=== PATIENT | female | born 1995 | race Caucasian/White ===

== ENCOUNTER 2019-05-18 21:05 | Emergency (ER) | payer OTHER ==
[2019-05-18] MEDS ORDERED: Ondansetron 4 MG/2 ML SDV IVPUSH ONE (21:15)
[2019-05-18] MEDS ORDERED: Sodium Chloride 0.9% 1,000 ML IV ONE (21:15)
[2019-05-18 21:19] VITALS: BP 114/78; PULSE 80
[2019-05-18] MEDS ORDERED: diphenhydrAMINE 50 MG/ML SDV IVPUSH ONE (21:38)
[2019-05-18] MEDS ORDERED: Ketorolac 30 MG/ML SDV IVPUSH ONE (21:46)
[2019-05-18] MEDS ORDERED: Haloperidol Lactate 5 MG/ML SDV IV ONE (21:46)
--- NOTE | 2019-05-18 22:08 | EDM.PDOC ---
ED HPI GENERAL MEDICAL PROBLEM - General Chief Complaint: Abdominal Pain Stated Complaint: NAUSIA Time Seen by Provider: 05/18/19 21:10 Source of Information: Reports: Patient, Family History Limitations: Reports: No Limitations - History of Present Illness INITIAL COMMENTS - FREE TEXT/NARRATIVE: Patient presents to ER with complaints of intense nausea/vomiting and abdominal pain. Has been having frequent issues like this for the last 2 months. Has had multiple ER visits, [facility] visits for same complaint. She has had EGDs, CT scans, multiple lab tests. Recently saw an internal medicine doctor and had a breath test for h. pylori. Has not gotten the results yet from this. She states the vomiting started again 2 hours ago. Does not feel associated with eating as happens whether she eats or not but admits she "doesn't eat much as afraid to vomit". Had a soft to loose stool earlier today although that is not unusual for her. No fevers Per [facility] chart, has had multiple lab tests, EGD, CT scan, ultrasounds without any positive results. 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 She did not use today but admits to use yesterday. States that the internal medicine doctor she saw on doesn't necessarily agree with that diagnosis. Onset: Today, Sudden Duration: Hour(s):, Constant Location: Reports: Abdomen Quality: Reports: Sharp, Stabbing Severity: Severe Improves with: Reports: None Associated Symptoms: Reports: Loss of Appetite, Nausea/Vomiting. Denies: Chest Pain, Cough, Fever/Chills, Shortness of Breath Anterior Abdomen Pain Score (Numeric/FACES): 10 - Related Data Allergies Allergy/AdvReac Type Severity Reaction Status Date / Time azithromycin [From Zithromax] Allergy Rash Verified 05/18/19 21:17 Home Meds: Home Meds Norgestimate-Ethinyl Estradiol [Ortho Tri-Cyclen] 1 each PO DAILY 01/16/15 [ History] clonazePAM [Clonazepam] 1 tab PO BID PRN 01/16/15 [History] Past Medical History Gastrointestinal History: Reports: GERD Psychiatric History: Reports: Anxiety, Depression - Past Surgical History GI Surgical History: Reports: None Social & Family History - Tobacco Use Smoking Status *Q: Current Every Day Smoker - Recreational Drug Use Recreational Drug Type: Reports: Marijuana/Hashish ED ROS GENERAL - Review of Systems Review Of Systems: See Below Constitutional: Reports: Weakness, Fatigue, Decreased Appetite. Denies: Fever, Chills, Malaise HEENT: Reports: No Symptoms Respiratory: Denies: Shortness of Breath, Cough Cardiovascular: Denies: Chest Pain, Edema, Lightheadedness Endocrine: Denies: Fatigue GI/Abdominal: Reports: Abdominal Pain, Nausea, Vomiting. Denies: Constipation, Diarrhea : Reports: No Symptoms Musculoskeletal: Reports: No Symptoms Skin: Reports: No Symptoms Neurological: Reports: No Symptoms ED EXAM, GI/ABD - Physical Exam Exam: See Below Exam Limited By: No Limitations General Appearance: Alert, WD/WN, Moderate Distress Ears: Normal External Exam, Normal TMs Nose: Normal Inspection, Normal Mucosa, No Blood Throat/Mouth: Normal Inspection, Normal Oropharynx Head: Normocephalic Neck: Normal Inspection, Supple, Non-Tender Respiratory/Chest: No Respiratory Distress, Lungs Clear, Normal Breath Sounds Cardiovascular: Regular Rate, Rhythm GI/Abdominal Exam: Normal Bowel Sounds, Soft, Tender Extremities: Normal Inspection, No Pedal Edema Neurological: Alert, Oriented Skin Exam: Warm, Dry Course - Vital Signs Last Recorded V/S: Last Vital Signs Temp 97.9 F 05/18/19 21:17 Pulse 80 05/18/19 21:17 Resp 16 05/18/19 21:17 BP 114/78 05/18/19 21:17 Pulse Ox 98 05/18/19 21:17 - Orders/Labs/Meds Orders: Active Orders 24 hr Category Date Time Status Abdomen 2V AP Flat Upright [CR] Stat Exams 05/18/19 21:31 Ordered DRUG SCREEN, URINE [URCHEM] Stat Lab 05/18/19 21:36 Ordered UA W/MICROSCOPIC [URIN] Stat Lab 05/18/19 21:31 Ordered Labs: Laboratory Tests 05/18/19 05/18/19 Range/Units 21:53 21:53 WBC 12.4 H (4.0-10.0) x10^3/uL RBC 5.03 (4.00-5.50) x10^6/uL Hgb 14.7 (12.0-16.0) g/dL Hct 43.6 (33.0-47.0) % MCV 86.7 (78.0-93.0) fL MCH 29.2 (26.0-32.0) pg MCHC 33.7 (32.0-36.0) g/dL RDW Coeff of Farhat 12.5 (10.0-15.0) % Plt Count 301 (130-400) x10^3/uL Neut % (Auto) 57.6 (50.0-80.0) % Lymph % (Auto) 33.0 (25.0-50.0) % Knox % (Auto) 7.4 (2.0-11.0) % Eos % (Auto) 1.8 (0.0-4.0) % Baso % (Auto) 0.2 (0.2-1.2) % Sodium 140 (136-145) mmol/L Potassium 3.5 (3.5-5.1) mmol/L Chloride 103 (98-107) mmol/L Carbon Dioxide 26 (21-32) mmol/L Anion Gap 14.5 (10-20) mmol/L BUN 10 (7-18) mg/dL Creatinine 1.0 (0.55-1.02) mg/dL Est Cr Clr Drug Dosing TNP Estimated GFR (MDRD) > 60 Glucose 98 (74-106) mg/dL Calcium 8.7 (8.5-10.1) mg/dL Corrected Calcium 9.02 (8.5-10.1) mg/dL Total Bilirubin 0.2 (0.2-1.0) mg/dL AST 16 (15-37) U/L ALT 21 (14-59) U/L Alkaline Phosphatase 113 (46-116) U/L C-Reactive Protein < 0.2 (<=0.9) mg/dL Total Protein 7.3 (6.4-8.2) g/dL Albumin 3.6 (3.4-5.0) g/dL Globulin 3.7 Albumin/Globulin Ratio 0.97 Amylase 59 (25-115) U/L Lipase 83 (73-393) U/L Meds: Medications Discontinued Medications Generic Name Dose Route Start Last Admin Trade Name Freq PRN Reason Stop Dose Admin Diphenhydramine HCl 25 mg 05/18/19 21:38 05/18/19 21:54 Benadryl IVPUSH 05/18/19 21:39 25 mg ONETIME ONE Administration Haloperidol Lactate 5 mg 05/18/19 21:46 05/18/19 22:00 Haldol IV 05/18/19 21:47 5 mg ONETIME ONE Administration Hydromorphone HCl 1 mg 05/18/19 22:29 05/18/19 22:33 Dilaudid IVPUSH 05/18/19 22:30 1 mg ONETIME ONE Administration Sodium Chloride 1,000 mls @ 999 mls/hr 05/18/19 21:15 05/18/19 21:34 Normal Saline IV 05/18/19 22:15 999 mls/hr ONETIME ONE Administration Ketorolac Tromethamine 30 mg 05/18/19 21:46 05/18/19 21:51 Toradol IVPUSH 05/18/19 21:47 30 mg ONETIME ONE Administration Ondansetron HCl 4 mg 05/18/19 21:15 05/18/19 21:32 Zofran IVPUSH 05/18/19 21:16 4 mg ONETIME ONE Administration - Re-Assessments/Exams Free Text/Narrative Re-Assessment/Exam: 05/18/19 22:35 Patient has had multiple medications since admission here to include Zofran, Benadryl, Toradol, Haldol. Continues to thrash around in pain, retching with emesis. Dilaudid ordered. 2250-Has finally settled down some, states pain is easing, does feel she could go home and sleep and hopefully will continue to feel better. Long discussion held with mother about potential for this being caused by marijuana. Will continue to follow up with internal med and GI but do stress the discontinuation of THC. Departure - Departure Time of Disposition: 22:51 Disposition: Home, Self-Care 01 Condition: Fair Clinical Impression: Cannabinoid hyperemesis syndrome Nausea & vomiting Qualifiers: Vomiting Intractability: intractable - Discharge Information *PRESCRIPTION DRUG MONITORING PROGRAM REVIEWED*: No *COPY OF PRESCRIPTION DRUG MONITORING REPORT IN PATIENT DENIS: No Forms: ED Department Discharge Additional Instructions: 1. Rest 2. Zofran 4 mg every 6 hours as needed for nausea 3. Toradol 10 mg every hours as needed for pain 4. Follow up with GI/internal med for further direction. Sepsis Event Note - Evaluation Sepsis Screening Result: No Definite Risk - Focused Exam Vital Signs: Vital Signs Temp Pulse Resp BP Pulse Ox 05/18/19 21:17 97.9 F 80 16 114/78 98 Date Exam was Performed: 05/18/19 Time Exam was Performed: 22:35 - My Orders Last 24 Hours: My Active Orders 05/18/19 21:31 Abdomen 2V AP Flat Upright [CR] Stat UA W/MICROSCOPIC [URIN] Stat 05/18/19 21:36 DRUG SCREEN, URINE [URCHEM] Stat - Assessment/Plan Last 24 Hours: My Active Orders 05/18/19 21:31 Abdomen 2V AP Flat Upright [CR] Stat UA W/MICROSCOPIC [URIN] Stat 05/18/19 21:36 DRUG SCREEN, URINE [URCHEM] Stat
[2019-05-18 22:28] LABS: CHLORIDE,CL 103 mmol/L (98-107); SODIUM,NA 140 mmol/L (136-145)
[2019-05-18 22:29] LABS: ANION GAP 14.5 mmol/L (10-20)
[2019-05-18] MEDS ORDERED: HYDROmorphone 1 MG/ML Syringe IVPUSH ONE (22:29)
[2019-05-18] MEDS ORDERED: Take Home: Ketorolac 10 MG Tab, 4 Tab Pack PO ONE (22:54)
--- NOTE | 2019-05-19 09:19 | CR ---
[id number] RAD/RAD Abd Flat and Upright 2V EXAM: ABDOMEN 2 VIEWS INDICATION: ABDOMINAL PAIN. COMPARISON: None. DISCUSSION: A couple of mildly prominent small bowel loops in the left upper quadrant which are nonspecific, but could be seen in the localized ileus. Gas is seen throughout a normal-appearing colon. Follow-up radiographs may be useful if symptoms persist. No pathologic calcifications or osseous lesions are seen. IMPRESSION: 1. Nonspecific bowel gas pattern. Omi Blake MD 05/19/19 0918 Thank you for allowing us to participate in the care of your patient.
== END 2019-05-18 23:00 | disposition home or self-care (01) ==
LOC: VM.ED 21:05
DX: F12.988 Cannabis use, unspecified with other cannabis-induced disorder (principal); R11.2 Nausea with vomiting, unspecified; F17.210 Nicotine dependence, cigarettes, uncomplicated; Z88.1 Allergy status to other antibiotic agents
CPT/HCPCS: 36415; 74019; 80053; 82150; 83690; 85025; 86140; 96361; 96374; 96375; 99284-25; A9270-GY; J1170; J1200; J1630; J1885; J2405; J7030

== ENCOUNTER 2019-05-20 09:17 | Emergency (ER) | payer OTHER ==
[2019-05-20] MEDS ORDERED: Sodium Chloride 0.9% 10 ML Syringe FLUSH PRN (09:21)
[2019-05-20] MEDS ORDERED: Sodium Chloride 0.9% 1,000 ML IV ONE (09:23)
[2019-05-20] MEDS ORDERED: Prochlorperazine 10 MG/2 ML SDV IV ONE (09:26)
[2019-05-20] MEDS ORDERED: Pantoprazole 40 MG Vial IVPUSH ONE (09:28)
[2019-05-20] MEDS ORDERED: LORazepam 2 MG/ML SDV IVPUSH ONE ×2 (09:29→10:58)
[2019-05-20] MEDS ORDERED: Haloperidol Lactate 5 MG/ML SDV IV ONE (09:29)
[2019-05-20] MEDS ORDERED: Ketorolac 15 MG/ML SDV IVPUSH ONE (09:57)
[2019-05-20 10:12] LABS: ANION GAP 15.5 mmol/L (10-20); CHLORIDE,CL 108 mmol/L (98-107); SODIUM,NA 142 mmol/L (136-145)
[2019-05-20 10:17] VITALS: BP 111/67; PULSE 70
[2019-05-20] MEDS ORDERED: Metoclopramide 10 MG/2 ML SDV IVPUSH ONE (10:57)
--- NOTE | 2019-05-20 12:26 | EDM.PDOC ---
ED HPI GENERAL MEDICAL PROBLEM - General Chief Complaint: Gastrointestinal Problem Stated Complaint: abdominal pain, nausea and vomitting Time Seen by Provider: 05/20/19 09:30 Source of Information: Reports: Patient, Family History Limitations: Reports: No Limitations - History of Present Illness INITIAL COMMENTS - FREE TEXT/NARRATIVE: Patient presents to the ER from the clinic with hyperemesis. Patient states she smokes marijuana yesterday and started feeling nausea, forceful retching and abdominal pain. It has progressed and the patient states her abdominal pain is unbearable. The mother is present at bedside. Mother states patient was seen on Monday at the [place] [facility] for the same symptoms. After being diagnosed with cannabinoid induced hyperemesis that patient still went home and smoked more marijuana. The patient has had an intensive workup for the nausea, vomiting and abdominal pain, including CT abdomen and pelvis and EGD. No acute or pathologic findings. Patient is very anxious and persistent on receiving IV narcotic pain medication. Patient denies fever, chills, chest pain, diarrhea, constipation, rash. Onset: Today Onset Date: 05/19/19 Onset Time: 12:00 Duration: Getting Worse Location: Reports: Abdomen Quality: Reports: Ache, Stabbing Severity: Moderate Improves with: Reports: None Worsens with: Reports: None Associated Symptoms: Reports: Nausea/Vomiting Upper Abdominal Pain Score (Numeric/FACES): 10 - Related Data Allergies Allergy/AdvReac Type Severity Reaction Status Date / Time azithromycin [From Zithromax] Allergy Rash Verified 05/20/19 10:08 Home Meds: Home Meds ARIPiprazole [Aripiprazole] 2 mg DAILY 05/20/19 [History] Escitalopram [Lexapro] 20 mg DAILY 05/20/19 [History] Ondansetron [Zofran ODT] 4 mg Q4H PRN 05/20/19 [History] hydrOXYzine HCL [hydrOXYzine] 25 mg QID PRN 05/20/19 [History] polyethylene glycoL 3350 [MiraLAX] 3 tsp TID PRN 05/20/19 [History] Past Medical History Gastrointestinal History: Reports: GERD, Other (See Below) Other Gastrointestinal History: cannaboid hyperemesis Psychiatric History: Reports: Anxiety, Depression - Past Surgical History GI Surgical History: Reports: None Social & Family History - Tobacco Use Smoking Status *Q: Current Every Day Smoker Years of Tobacco use: 10 Packs/Tins Daily: 1 - Recreational Drug Use Recreational Drug Use: Yes Drug Use in Last 12 Months: Yes Recreational Drug Type: Reports: Marijuana/Hashish Recreational Drug Use Frequency: Daily ED ROS GENERAL - Review of Systems Review Of Systems: See Below Constitutional: Reports: No Symptoms, Decreased Appetite. Denies: Fever, Chills , Malaise, Weakness HEENT: Reports: No Symptoms Respiratory: Reports: No Symptoms. Denies: Shortness of Breath, Wheezing, Cough , Sputum Cardiovascular: Reports: No Symptoms Endocrine: Reports: No Symptoms GI/Abdominal: Reports: Abdominal Pain, Nausea, Vomiting. Denies: Black Stool, Constipation, Diarrhea, Distension, Flatus : Reports: No Symptoms Musculoskeletal: Reports: No Symptoms Skin: Reports: No Symptoms. Denies: Cyanosis, Jaundice, Rash Neurological: Reports: No Symptoms. Denies: Headache, Tremors, Trouble Speaking , Weakness Psychiatric: Reports: Agitation, Anxiety Hematologic/Lymphatic: Reports: No Symptoms Immunologic: Reports: No Symptoms ED EXAM, GENERAL - Physical Exam Exam: See Below Exam Limited By: No Limitations General Appearance: Alert, Anxious, Moderate Distress Eye Exam: Bilateral Eye: EOMI, PERRL Ears: Normal External Exam, Normal Canal Ear Exam: Bilateral Ear: Auricle Normal Nose: Normal Inspection, Normal Mucosa, No Blood Throat/Mouth: Normal Inspection, Normal Lips, Normal Teeth, Normal Oropharynx, No Airway Compromise Head: Atraumatic, Normocephalic Neck: Normal Inspection, Supple, Non-Tender, Full Range of Motion Respiratory/Chest: No Respiratory Distress, Lungs Clear, Normal Breath Sounds, Chest Non-Tender Cardiovascular: Normal Peripheral Pulses, Regular Rate, Rhythm, No Edema, No Murmur Peripheral Pulses: 2+: Radial (L), Radial (R) GI/Abdominal: Normal Bowel Sounds, Soft, Non-Tender, No Organomegaly, No Distention, No Abnormal Bruit, No Mass (Female) Exam: Deferred Rectal (Female) Exam: Deferred Back Exam: Normal Inspection, Full Range of Motion Extremities: Normal Inspection, Normal Range of Motion, No Pedal Edema, Normal Capillary Refill Neurological: Alert, Oriented, CN II-XII Intact, Normal Cognition, Normal Gait, Normal Reflexes, No Motor/Sensory Deficits Psychiatric: Normal Affect, Anxious Skin Exam: Warm, Dry, Intact, Normal Color, No Rash Lymphatic: No Adenopathy Course - Vital Signs Last Recorded V/S: Last Vital Signs Temp 36.1 C 05/20/19 09:25 Pulse 70 05/20/19 09:25 Resp 24 H 05/20/19 09:25 BP 111/67 05/20/19 09:25 Pulse Ox 97 05/20/19 09:25 - Orders/Labs/Meds Orders: Active Orders 24 hr Category Date Time Status DRUG SCREEN, URINE [URCHEM] Stat Lab 05/20/19 09:30 Ordered HCG URINE, POC [POC] Stat Lab 05/20/19 09:31 Ordered Peripheral IV Insertion Adult [OM.PC] Routine Oth 05/20/19 09:21 Ordered Labs: Laboratory Tests 05/20/19 05/20/19 05/20/19 Range/Units 09:35 09:35 09:35 WBC 9.5 (4.0-10.0) x10^3/uL RBC 5.17 (4.00-5.50) x10^6/uL Hgb 15.1 (12.0-16.0) g/dL Hct 44.0 (33.0-47.0) % MCV 85.1 (78.0-93.0) fL MCH 29.2 (26.0-32.0) pg MCHC 34.3 (32.0-36.0) g/dL RDW Coeff of Farhat 12.4 (10.0-15.0) % Plt Count 300 (130-400) x10^3/uL Neut % (Auto) 69.6 (50.0-80.0) % Lymph % (Auto) 23.5 L (25.0-50.0) % [place] % (Auto) 5.6 (2.0-11.0) % Eos % (Auto) 1.2 (0.0-4.0) % Baso % (Auto) 0.1 L (0.2-1.2) % PT 10.9 (10.0-12.8) SEC INR 1.0 L (2.0-3.5) Sodium 142 (136-145) mmol/L Potassium 3.5 (3.5-5.1) mmol/L Chloride 108 H (98-107) mmol/L Carbon Dioxide 22 (21-32) mmol/L Anion Gap 15.5 (10-20) mmol/L BUN 12 (7-18) mg/dL Creatinine 1.0 (0.55-1.02) mg/dL Est Cr Clr Drug Dosing TNP Estimated GFR (MDRD) > 60 Glucose 100 (74-106) mg/dL Calcium 9.2 (8.5-10.1) mg/dL Corrected Calcium 9.52 (8.5-10.1) mg/dL Phosphorus 2.7 (2.6-4.7) mg/dL Magnesium 2.0 (1.8-2.4) mg/dL Total Bilirubin 0.5 (0.2-1.0) mg/dL AST 19 (15-37) U/L ALT 24 (14-59) U/L Alkaline Phosphatase 117 H (46-116) U/L C-Reactive Protein < 0.2 (<=0.9) mg/dL Total Protein 7.3 (6.4-8.2) g/dL Albumin 3.6 (3.4-5.0) g/dL Globulin 3.7 Albumin/Globulin Ratio 0.97 Meds: Medications Discontinued Medications Generic Name Dose Route Start Last Admin Trade Name Freq PRN Reason Stop Dose Admin Haloperidol Lactate 10 mg 05/20/19 09:29 05/20/19 09:41 Haldol IV 05/20/19 09:30 10 mg ONETIME ONE Administration Sodium Chloride 1,000 mls @ 1,000 mls/hr 05/20/19 09:23 05/20/19 09:39 Normal Saline IV 05/20/19 10:22 1,000 mls/hr .BOLUS ONE Administration Ketorolac Tromethamine 15 mg 05/20/19 09:57 05/20/19 10:07 Toradol IVPUSH 05/20/19 09:58 15 mg ONETIME ONE Administration Lorazepam 1 mg 05/20/19 09:29 05/20/19 09:39 Ativan IVPUSH 05/20/19 09:30 1 mg STAT ONE Administration Lorazepam 1 mg 05/20/19 10:58 05/20/19 11:05 Ativan IVPUSH 05/20/19 10:59 1 mg STAT ONE Administration Metoclopramide HCl 10 mg 05/20/19 10:57 05/20/19 11:08 Reglan IVPUSH 05/20/19 10:58 10 mg ONETIME ONE Administration Pantoprazole Sodium 80 mg 05/20/19 09:28 05/20/19 09:43 Protonix Iv IVPUSH 05/20/19 09:29 80 mg ONETIME ONE Administration Prochlorperazine Edisylate 10 mg 05/20/19 09:26 Compazine IV 05/20/19 09:27 ONETIME ONE Sodium Chloride 10 ml 05/20/19 09:21 Saline Flush FLUSH ASDIRECTED PRN Keep Vein Open - Re-Assessments/Exams Free Text/Narrative Re-Assessment/Exam: 05/20/19 12:30 After IV medication, nausea and retching had improved, patient was sleeping When patient would waken, then would start to retch Departure - Departure Time of Disposition: 12:15 Disposition: Home, Self-Care 01 Clinical Impression: Marijuana use Nausea & vomiting Qualifiers: Vomiting Intractability: intractable - Discharge Information Instructions: Cannabis Use Disorder Referrals: PCP,Unknown [Primary Care Provider] - Forms: ED Department Discharge Additional Instructions: Stop using marijuana Try to sleep this afternoon Promethazine suppository 25mg 1 every 6 hours as needed for nausea/vomiting Zofran ODT4mg 1 dissolved in mouth every 6 hours Sepsis Event Note - Evaluation Sepsis Screening Result: No Definite Risk - Focused Exam Vital Signs: Vital Signs Temp Pulse Resp BP Pulse Ox 05/20/19 09:25 36.1 C 70 24 H 111/67 97 Date Exam was Performed: 05/20/19 Time Exam was Performed: 14:07 - My Orders Last 24 Hours: My Active Orders 05/20/19 09:21 Peripheral IV Insertion Adult [OM.PC] Routine 05/20/19 09:30 DRUG SCREEN, URINE [URCHEM] Stat 05/20/19 09:31 HCG URINE, POC [POC] Stat - Assessment/Plan Last 24 Hours: My Active Orders 05/20/19 09:21 Peripheral IV Insertion Adult [OM.PC] Routine 05/20/19 09:30 DRUG SCREEN, URINE [URCHEM] Stat 05/20/19 09:31 HCG URINE, POC [POC] Stat Plan: Stop using marijuana Try to sleep this afternoon Promethazine suppository 25mg 1 every 6 hours as needed for nausea/vomiting Zofran ODT4mg 1 dissolved in mouth every 6 hours
== END 2019-05-20 12:15 | disposition home or self-care (01) ==
LOC: VM.ED 09:17
DX: F12.988 Cannabis use, unspecified with other cannabis-induced disorder (principal); R11.2 Nausea with vomiting, unspecified; F41.9 Anxiety disorder, unspecified; F32.9 Major depressive disorder, single episode, unspecified; F17.210 Nicotine dependence, cigarettes, uncomplicated; Z88.1 Allergy status to other antibiotic agents; Z79.899 Other long term (current) drug therapy
CPT/HCPCS: 80053; 83735; 84100; 85025; 85610; 86140; 96361; 96374; 96375; 96376; 99284; C9113; J1630; J1885; J2060; J2765; J7030

== ENCOUNTER 2019-05-22 03:57 | Emergency (ER) | payer OTHER ==
[2019-05-22 04:02] VITALS: BP 131/84; PULSE 54
--- NOTE | 2019-05-22 04:25 | EDM.PDOC ---
ED HPI GENERAL MEDICAL PROBLEM - General Chief Complaint: Gastrointestinal Problem Stated Complaint: vomiting Time Seen by Provider: 05/22/19 04:13 Source of Information: Reports: Patient, Family History Limitations: Reports: No Limitations - History of Present Illness INITIAL COMMENTS - FREE TEXT/NARRATIVE: Patient states she has had chronic nausea and vomiting ongoing now for over a week after being seen at multiple locations [facility] in [place] and here diagnosed with cannabinoid hyperemesis syndrome. Patient states last time she smoked anything was Monday she states she has been having ongoing vomiting all day today probably 15 times she has been trying Cokes crackers toast juice but not keeping anything down she says she has Phenergan suppositories at home and Zofran ODT but still having issues. She denies any abdominal pain or diarrhea just a chronic nausea feeling and continuous vomiting. She has had extensive work-up CT abdomen pelvis EGD GI consults multiple ER visits all of been negative she was seen here on 05 20 with a negative CBC negative hCG normal exam Duration: Day(s): Location: Reports: Abdomen Quality: Reports: Other (No pain) Associated Symptoms: Reports: Nausea/Vomiting Abdomen Pain Score (Numeric/FACES): 3 - Related Data Allergies Allergy/AdvReac Type Severity Reaction Status Date / Time azithromycin [From Zithromax] Allergy Rash Verified 05/22/19 03:58 Home Meds: Home Meds ARIPiprazole [Aripiprazole] 2 mg DAILY 05/20/19 [History] Escitalopram [Lexapro] 20 mg DAILY 05/20/19 [History] Ondansetron [Zofran ODT] 4 mg Q4H PRN 05/20/19 [History] hydrOXYzine HCL [hydrOXYzine] 25 mg QID PRN 05/20/19 [History] polyethylene glycoL 3350 [MiraLAX] 3 tsp TID PRN 05/20/19 [History] Past Medical History Gastrointestinal History: Reports: GERD, Other (See Below) Other Gastrointestinal History: cannaboid hyperemesis Psychiatric History: Reports: Anxiety, Depression - Past Surgical History GI Surgical History: Reports: None Social & Family History - Tobacco Use Smoking Status *Q: Current Every Day Smoker Years of Tobacco use: 8 Packs/Tins Daily: 1 ED ROS GENERAL - Review of Systems Review Of Systems: See Below Constitutional: Reports: No Symptoms. Denies: Fever, Chills, Malaise, Weakness , Fatigue HEENT: Reports: No Symptoms Respiratory: Reports: No Symptoms. Denies: Shortness of Breath, Cough Cardiovascular: Reports: No Symptoms. Denies: Lightheadedness, Palpitations, Syncope Endocrine: Reports: No Symptoms GI/Abdominal: Reports: Nausea, Vomiting (Patient states last time she vomited was about an hour ago), Other (Last bowel movement was 2 days ago). Denies: Abdominal Pain, Bloody Stool, Constipation, Diarrhea : Reports: No Symptoms Musculoskeletal: Reports: No Symptoms Skin: Reports: No Symptoms Neurological: Reports: No Symptoms Psychiatric: Reports: No Symptoms Hematologic/Lymphatic: Reports: No Symptoms Immunologic: Reports: No Symptoms ED EXAM, GI/ABD - Physical Exam Exam: See Below Exam Limited By: No Limitations General Appearance: Alert, WD/WN, No Apparent Distress, Other (Patient sitting on the bed crosslegged no acute distress laughing with mother upon walking into the room) Eyes: Bilateral: Normal Appearance Ears: Hearing Grossly Normal Nose: Normal Inspection, Normal Mucosa, No Blood Throat/Mouth: Normal Inspection, Normal Lips, Normal Teeth, Normal Gums, Normal Oropharynx, Normal Voice, No Airway Compromise, Other (Moist mucous membranes normal skin turgor) Head: Atraumatic, Normocephalic Neck: Normal Inspection, Supple, Non-Tender, Full Range of Motion Respiratory/Chest: No Respiratory Distress, Lungs Clear, Normal Breath Sounds, No Accessory Muscle Use, Chest Non-Tender Cardiovascular: Normal Peripheral Pulses, Regular Rate, Rhythm, No Edema, No Gallop, No JVD, No Murmur, No Rub GI/Abdominal Exam: Normal Bowel Sounds, Soft, Non-Tender, No Organomegaly, No Distention, Other (Patient has no tenderness palpation over the abdomen positive bowel sounds negative heel slap negative pelvic rock negative psoas negative obturator negative CVA tenderness palpation). No: Guarding, Rigid, Rebound, Tender Extremities: Normal Inspection, Normal Range of Motion, Non-Tender, No Pedal Edema, Normal Capillary Refill Neurological: Alert, Oriented, CN II-XII Intact, Normal Cognition, Normal Gait, No Motor/Sensory Deficits, Other (All vital signs are stable she has a heart rate 54) Psychiatric: Normal Affect, Normal Mood Skin Exam: Warm, Dry, Intact, Normal Color, No Rash Lymphatic: No Adenopathy Course - Vital Signs Text/Narrative:: Records were reviewed from [facility] and here no acute findings were noted Patient states she has Zofran ODT and Phenergan suppositories at home patient was instructed to drink Sprite Pedialyte Gatorade 7-Up bola rosalinda small amounts of fluids and advance as tolerated to eat crackers toast bananas advance as tolerated Follow-up with your regular primary care provider in the next 24 to 48 hours Last Recorded V/S: Last Vital Signs Temp 35.9 C L 05/22/19 03:59 Pulse 54 L 05/22/19 03:59 Resp 18 05/22/19 03:59 BP 131/84 05/22/19 03:59 Pulse Ox 100 05/22/19 03:59 Departure - Departure Time of Disposition: 04:30 Disposition: Home, Self-Care 01 Condition: Good Clinical Impression: Cannabinoid hyperemesis syndrome Nausea & vomiting Qualifiers: Vomiting Intractability: intractable - Discharge Information *PRESCRIPTION DRUG MONITORING PROGRAM REVIEWED*: No *COPY OF PRESCRIPTION DRUG MONITORING REPORT IN PATIENT DENIS: No Sepsis Event Note - Evaluation Sepsis Screening Result: No Definite Risk - Focused Exam Vital Signs: Vital Signs Temp Pulse Resp BP Pulse Ox 05/22/19 03:59 35.9 C L 54 L 18 131/84 100 Date Exam was Performed: 05/22/19 Time Exam was Performed: 04:19 - Problem List & Annotations (1) Nausea & vomiting SNOMED Code(s): 03685262 Code(s): R11.2 - NAUSEA WITH VOMITING, UNSPECIFIED Status: Acute Qualifiers: Vomiting Intractability: intractable (2) Cannabinoid hyperemesis syndrome SNOMED Code(s): 913165088, 696136690 Code(s): F12.988 - CANNABIS USE, UNSP WITH OTHER CANNABIS-INDUCED DISORDER Status: Acute
== END 2019-05-22 04:22 | disposition home or self-care (01) ==
LOC: VM.ED 03:57
DX: F12.988 Cannabis use, unspecified with other cannabis-induced disorder (principal); F32.9 Major depressive disorder, single episode, unspecified; F41.9 Anxiety disorder, unspecified; F17.210 Nicotine dependence, cigarettes, uncomplicated; Z88.1 Allergy status to other antibiotic agents; Z79.899 Other long term (current) drug therapy
CPT/HCPCS: 99283

== ENCOUNTER 2019-05-24 23:15 | Emergency (ER) | payer OTHER ==
[2019-05-24] MEDS ORDERED: Haloperidol Lactate 5 MG/ML SDV IM ONE (23:32)
[2019-05-24] MEDS ORDERED: diphenhydrAMINE 50 MG/ML SDV IM ONE (23:32)
--- NOTE | 2019-05-24 23:33 | EDM.PDOC ---
ED HPI GENERAL MEDICAL PROBLEM - General Stated Complaint: Nausea, vomiting Time Seen by Provider: 05/24/19 23:30 Source of Information: Reports: Patient, Family History Limitations: Reports: No Limitations - History of Present Illness INITIAL COMMENTS - FREE TEXT/NARRATIVE: Patient presents to ER with complaints of intense nausea/vomiting and abdominal pain. Has been having frequent issues like this for the last 2 months. Has had multiple ER visits, [facility] visits for same complaint. She has had EGDs, CT scans, multiple lab tests. Recently saw an internal medicine doctor and had a breath test for h. pylori. which was negative she states. The patient has been seen multiple times in the [facility] ER for the same symptoms and ended up being discharged with cannabis hyperemesis and ended up going home and smoking more cannabis the same day. She returned to our ER shortly there after for similar symptoms again. Pt has been seen 3 times in this ER for similar issues and concerns. Patient states last time she smoked anything was Monday she states she has been having ongoing vomiting all day every day since then and estimates about 15 times per day. She has been trying Cokes crackers toast juice but not keeping anything down she says she has Phenergan suppositories at home and Zofran ODT but still having issues. She does state she tries and takes large drinks for she is so thirsty at times and will end up becoming nauseated shortly after. She states she also tries to induce vomiting when she does become nauseated. Mother states the patient was seen 2 times at the [facility] emergency room yesterday and was given Haldol and Benadryl the second visit with great relief and had not had any episodes of emesis for the last 12 hours however started developing significant nausea and vomiting in the last 3 hours. Patient did take a suppository phenergan to try to help with symptoms. She also has been using a hot showers at least every hour. Onset: Gradual Quality: Reports: Ache, Throbbing Severity: Moderate Improves with: Reports: Other (warm shower ) Worsens with: Reports: Other (food, water, ), Movement Treatments ENTRY MANAGER: Reports: Other (see below) (Phenergan suppositories 9pm ) - Related Data Allergies Allergy/AdvReac Type Severity Reaction Status Date / Time azithromycin [From Zithromax] Allergy Rash Verified 05/24/19 23:57 Home Meds: Home Meds ARIPiprazole [Aripiprazole] 2 mg DAILY 05/20/19 [History] Escitalopram [Lexapro] 20 mg DAILY 05/20/19 [History] Ondansetron [Zofran ODT] 4 mg Q4H PRN 05/20/19 [History] hydrOXYzine HCL [hydrOXYzine] 25 mg QID PRN 05/20/19 [History] polyethylene glycoL 3350 [MiraLAX] 3 tsp TID PRN 05/20/19 [History] Ondansetron [Zofran ODT] 4 mg PO Q6H PRN 05/24/19 [History] Promethazine [Phenadoz] 25 mg RECTAL Q6H PRN 05/24/19 [History] Past Medical History Gastrointestinal History: Reports: GERD, Other (See Below) Other Gastrointestinal History: cannaboid hyperemesis Psychiatric History: Reports: Anxiety, Depression - Past Surgical History GI Surgical History: Reports: None ED ROS GENERAL - Review of Systems Review Of Systems: See Below Constitutional: Reports: Decreased Appetite. Denies: Fever, Chills, Malaise, Weakness, Night Sweats, Weight Gain HEENT: Reports: No Symptoms Respiratory: Reports: No Symptoms Cardiovascular: Reports: No Symptoms Endocrine: Reports: No Symptoms GI/Abdominal: Reports: Abdominal Pain (muscle tenderness), Nausea, Vomiting. Denies: Black Stool, Bloody Stool, Constipation, Diarrhea, Decreased Appetite, Distension, Flatus, Hematemesis, Hematochezia, Melena, Mucous in Stool, Stool Incontinence : Reports: No Symptoms Musculoskeletal: Reports: No Symptoms Skin: Reports: No Symptoms Neurological: Reports: No Symptoms Psychiatric: Reports: No Symptoms Hematologic/Lymphatic: Reports: No Symptoms Immunologic: Reports: No Symptoms ED EXAM, GENERAL - Physical Exam Exam: See Below Exam Limited By: No Limitations General Appearance: Alert, WD/WN, No Apparent Distress Eye Exam: Bilateral Eye: PERRL Nose: Normal Inspection, Normal Mucosa Throat/Mouth: Normal Inspection, Normal Lips Head: Atraumatic, Normocephalic Neck: Normal Inspection, Supple, Non-Tender, Full Range of Motion Respiratory/Chest: No Respiratory Distress, Lungs Clear, Normal Breath Sounds, No Accessory Muscle Use, Chest Non-Tender Cardiovascular: Normal Peripheral Pulses, Regular Rate, Rhythm, No Edema, No Murmur, No Rub GI/Abdominal: Normal Bowel Sounds, Soft, Non-Tender, No Organomegaly, No Distention, No Abnormal Bruit, No Mass. No: Distended, Guarding, Rigid, Rebound , Abnormal Bowel Sounds, Hernia, Hepatomegaly, Splenomegaly Back Exam: Normal Inspection, Full Range of Motion Extremities: Normal Inspection, Normal Range of Motion, Non-Tender, No Pedal Edema, Normal Capillary Refill Neurological: Alert, Oriented, Normal Gait Psychiatric: Normal Affect, Normal Mood Skin Exam: Warm, Dry, Intact, Normal Color Course - Orders/Labs/Meds Meds: Medications Discontinued Medications Generic Name Dose Route Start Last Admin Trade Name Sammyq PRN Reason Stop Dose Admin Diphenhydramine HCl 50 mg 05/24/19 23:32 Benadryl IM 05/24/19 23:33 ONETIME ONE Haloperidol Lactate 5 mg 05/24/19 23:32 Haldol IM 05/24/19 23:33 STAT ONE Departure - Departure Time of Disposition: 00:00 Disposition: Home, Self-Care 01 Condition: Good Clinical Impression: Cannabis hyperemesis syndrome concurrent with and due to cannabis abuse, Cannabinoid hyperemesis syndrome - Discharge Information *PRESCRIPTION DRUG MONITORING PROGRAM REVIEWED*: Not Applicable *COPY OF PRESCRIPTION DRUG MONITORING REPORT IN PATIENT DENIS: Not Applicable Instructions: Substance Use Disorder and Mental Illness, Cannabinoid Hyperemesis Syndrome, Haloperidol injection, Diphenhydramine injection Forms: ED Department Discharge Additional Instructions: 1. rest 2. increase your water intake slowly do not guzzle or drink large glasses 3. Continue all at home medications 4. Follow up with PCP if symptoms continue, return, or progress 5. Call with any questions or concerns 6. Breathe during nausea episodes 7. Continue to use hot showers 8. Can take Benadryl every 4 hours to help with nausea 9. It is advise to seek out outpatient drug rehabilitation and treatment through the [facility] further evaluation 10. Activity and diet as tolerated 11. Information regarding your illness and medications given today in the emergency department is provided in the packet Sepsis Event Note - Focused Exam Date Exam was Performed: 05/24/19 Time Exam was Performed: 23:41 - Assessment/Plan Assessment:: 1. Cannabis hyperemesis Plan: 1. Haladol 5mg IM given in the ER to help with the nausea 2. Benedryl 50mg IM given in the ER to help with the nausea 3. Patient is advised to start taking oral intake very slowly and not to guzzle or chug large glasses of liquid 4. It is also encouraged to continue to use warm showers to help with the hyperemesis 5. Patient educated anti-about deep breathing during nausea episodes 6. Patient is advised to not induce vomiting 7. Patient and nursing staff was updated regarding the plan of care 8. Education provided the patient regarding activity, diet, rest, over-the- counter medication modalities, and follow-up care was provided 9. Patient and family are agreeable to the above plan of care 10. All questions and concerns were addressed with the patient and family prior to discharge
[2019-05-24 23:57] VITALS: BP 135/95; PULSE 69
== END 2019-05-25 00:13 | disposition home or self-care (01) ==
LOC: VM.ED 23:15
DX: F12.188 Cannabis abuse with other cannabis-induced disorder (principal); R11.10 Vomiting, unspecified; F41.9 Anxiety disorder, unspecified; F32.9 Major depressive disorder, single episode, unspecified; K21.9 Gastro-esophageal reflux disease without esophagitis; Z79.899 Other long term (current) drug therapy; Z88.1 Allergy status to other antibiotic agents
CPT/HCPCS: 96372; 99283; J1200; J1630

== ENCOUNTER 2022-07-22 22:53 | Emergency (ER) | payer BC, OTHER ==
[2022-07-22] MEDS ORDERED: LORazepam 2 MG/ML SDV IVPUSH ONE (23:13)
[2022-07-22] MEDS ORDERED: Ondansetron 4 MG/2 ML SDV IVPUSH ONE (23:21)
[2022-07-22] MEDS ORDERED: Sodium Chloride 0.9% 1,000 ML IV ONE (23:21)
[2022-07-22] MEDS ORDERED: Take Home: LORazepam 0.5 MG Tab, 2 Tab Pack ONE (23:32)
[2022-07-23 00:03] LABS: CHLORIDE,CL 101 mmol/L (98-107); SODIUM,NA 139 mmol/L (136-145)
[2022-07-23 00:05] LABS: ESTIMATED GFR 80 mL/min (>=60)
[2022-07-23] MEDS ORDERED: D5 1/2 NS w/ 40 mEq/L KCl 1,000 ML IV SCH (00:45)
[2022-07-23] MEDS ORDERED: LORazepam 2 MG/ML SDV IVPUSH ONE (00:45)
[2022-07-23] MEDS ORDERED: Take Home: LORazepam 0.5 MG Tab, 2 Tab Pack PO ONE (00:45)
[2022-07-23] MEDS ORDERED: Ondansetron 4 MG/2 ML SDV IVPUSH ONE (01:07)
[2022-07-23 02:54] VITALS: BP 142/86; PULSE 73
== END 2022-07-23 03:10 | disposition home or self-care (01) ==
LOC: VM.ED 22:53
DX: R10.9 Unspecified abdominal pain (principal); R11.2 Nausea with vomiting, unspecified; Z88.1 Allergy status to other antibiotic agents; Z72.0 Tobacco use
CPT/HCPCS: 80053; 82150; 83690; 85025; 86140; 96365; 96366; 96375; 96376; 99284; A9270; J2060; J2405; J3480; J7030; 99283